=== PATIENT | female | born 1965 | race Caucasian/White ===

== ENCOUNTER 2021-02-02 02:42 | Outpatient (CLI) | payer OTHER, SELFPAY ==
[2021-02-02 11:17] LABS: Source Nasal/Nares
[2021-02-02 17:21] LABS: COVID-19 PCR Negative (Negative)
== END 2021-02-02 02:43 | disposition home or self-care (01) ==
LOC: LBO 02:42
PROVIDERS: PCP Family Medicine; Visit Provider Ophthalmology
DX: Z20.822 Contact with and (suspected) exposure to COVID-19 (principal); Z01.818 Encounter for other preprocedural examination
CPT/HCPCS: 87635

== ENCOUNTER 2021-02-04 06:23 | Day surgery (SDC) | payer OTHER, SELFPAY ==
--- NOTE | 2021-02-04 06:14 | W.PREOPHP ---
Date of service: 02/04/21 Assessment and Plan Assessment and plan (1) Cortical cataract of right eye: Status: Chronic Assessment and plan: Assessment: Visually significant cataract of the right eye. Plan: Cataract extraction with lens implantation of the right eye (2) Nuclear sclerotic cataract of right eye: Status: Chronic Assessment and plan: Assessment: Visually significant cataract of the right eye. Plan: Cataract extraction with lens implantation of the right eye History of Present Illness History of Present Illness Chief Complaint: Progressive decreased vision, both eyes, right eye worse than left Narrative: The patient is a 54-year-old lady who has noted rapid decline in vision in both eyes over the past several months, right eye worse than left. She notes significant difficulty with vision at both distance and near. She is significantly photophobic and wears sunglasses outside due to glare. She can no longer drive at night. Review of Systems All systems reviewed & are unremarkable except as noted in HPI and below PFSH Medical History (Updated 02/04/21 @ 06:18 by Rasheed Castano MD) Bilateral plantar fasciitis Cataract Diabetes mellitus Diabetic neuropathy Edema of foot Elbow fracture Heartburn HLD (hyperlipidemia) Iron deficiency anemia Lesion of endometrium Medial epicondylitis Osteoporosis Pain in right foot Polyp of colon Psoriasis Rotator cuff syndrome Sciatica Snoring Tarsal tunnel syndrome, bilateral Tendinitis of foot Surgical History (Updated 02/04/21 @ 06:18 by Rasheed Castano MD) History of esophagogastroduodenoscopy (EGD) Hx of section Hx of cholecystectomy Hx of colonoscopy Hx of shoulder surgery Hx of sinus surgery Hx of tubal ligation Social History Smoking/Tobacco Use Status: Never Smoking risk assessment performed?: Yes Alcohol Intake: never Drug use: Never Substance use type: does not use Do you feel safe at home: Yes Do you feel safe in your relationship?: Yes Meds Allergies and Home Medications Allergies Allergy/AdvReac Type Severity Reaction Status Date / Time meloxicam AdvReac Severe Nausea Unverified 02/03/21 12:25 gabapentin AdvReac Intermediate Other (See Unverified 02/03/21 12:25 Comment) Home Medications Medication Instructions Recorded Confirmed Type alendronate 70 mg PO DIRECTED 02/03/21 02/03/21 History alpha lipoic acid 300 mg PO BID 02/03/21 02/03/21 History atorvastatin 20 mg PO DAILY 02/03/21 02/03/21 History calcium carb-mag oxide-vit D3 1 tab PO DAILY 02/03/21 02/03/21 History [Calcium Magnesium + D] cholecalciferol (vitamin D3) 25 mcg PO DAILY 02/03/21 02/03/21 History [Vitamin D3] cyanocobalamin (vitamin B-12) 25 mcg PO DAILY 02/03/21 02/03/21 History [Vitamin B-12] diclofenac sodium 1 applic TOPICAL QID 02/03/21 02/03/21 History duloxetine 20 mg PO QAM 02/03/21 02/03/21 History duloxetine 40 mg PO HS 02/03/21 02/03/21 History folic acid 1 mg PO DAILY 02/03/21 02/03/21 History lisinopril 2.5 mg PO DAILY 02/03/21 02/03/21 History magnesium chloride [Slow-Mag] 71.5 mg PO DAILY 02/03/21 02/03/21 History metformin 1,000 mg PO BID 02/03/21 02/03/21 History omeprazole 20 mg PO DAILY 02/03/21 02/03/21 History sitagliptin [Januvia] 100 mg PO HS 02/03/21 02/03/21 History triamcinolone acetonide 1 applic TOPICAL BID 02/03/21 02/03/21 History zinc sulfate-vitamin C [Vitamin C 1 tab PO DAILY 02/03/21 02/03/21 History Plus Zinc] Exam Eyes Conjunctivae: conjunctivae normal Sclera: sclerae normal Cornea: corneas normal Pupils: PERRL EOM: EOM intact bilaterally Other: Corrected visual acuity is 20/50 in the right eye, 20/40 in the left eye. Intraocular pressure is 19 right eye, 20 left eye. Slit-lamp examination reveals mild cortical cataracts OU with dense nuclear cataracts. Funduscopic examination shows disc cupping of 0.1 OU with normal vessels, macula, peripheral retina and vitreous. Resp Effort & Inspection: normal respiratory effort Auscultation: clear to auscultation bilaterally Cardio Rate: regular rate Rhythm: regular rhythm
[2021-02-04 06:55] VITALS: BP 141/79; PULSE 88; RESP 16; TEMP 36.6; O2SAT 100
--- NOTE | 2021-02-04 06:56 | ANES.PREOP_ITS ---
General Info Date of Service Date Performed: 02/04/21 Height: 5 ft 1 in Weight: 58.06 kg Body Mass Index (BMI): 24.1 Surgical Procedure: Operation Date: 02/04/21 07:40 Proposed Procedures Side Surgeon p Cataract Extraction with IOL Implant Right Rasheed Castano MD Meds Allergies and Home Medications Allergies Allergy/AdvReac Type Severity Reaction Status Date / Time meloxicam AdvReac Severe Nausea Unverified 02/04/21 06:48 gabapentin AdvReac Intermediate Other (See Unverified 02/04/21 06:48 Comment) Home Medication Medication Instructions Recorded alendronate 70 mg PO DIRECTED 02/03/21 alpha lipoic acid 300 mg PO BID 02/03/21 atorvastatin 20 mg PO DAILY 02/03/21 calcium carb-mag oxide-vit D3 1 tab PO DAILY 02/03/21 [Calcium Magnesium + D] cholecalciferol (vitamin D3) 25 mcg PO DAILY 02/03/21 [Vitamin D3] cyanocobalamin (vitamin B-12) 25 mcg PO DAILY 02/03/21 [Vitamin B-12] diclofenac sodium 1 applic TOPICAL QID 02/03/21 duloxetine 20 mg PO QAM 02/03/21 duloxetine 40 mg PO HS 02/03/21 folic acid 1 mg PO DAILY 02/03/21 lisinopril 2.5 mg PO DAILY 02/03/21 magnesium chloride [Slow-Mag] 71.5 mg PO DAILY 02/03/21 metformin 1,000 mg PO BID 02/03/21 omeprazole 20 mg PO DAILY 02/03/21 sitagliptin [Januvia] 100 mg PO HS 02/03/21 triamcinolone acetonide 1 applic TOPICAL BID 02/03/21 Current Visit Medications: Current Medications Generic Name Dose Route Start Last Admin Trade Name Freq PRN Reason Stop Dose Admin Acetaminophen 1,000 mg 02/04/21 06:00 Acetaminophen 500 Mg Tab PO Q4H PRN PRN Miscellaneous Medication 0 ml 02/04/21 06:00 Prednisolone 1%, Moxifloxacin 0.5%, Nepafenac 0.1% 5ml Btl OD DIRECTED [facility] Miscellaneous Medication 0 ml 02/04/21 06:00 Tropicam./Phenyleph. (1/2.5%) 5 Ml Btl OD DIRECTED [facility] Tetracaine HCl 0 ml 02/04/21 06:00 Tetracaine 0.5% 4 Ml Btl OD DIRECTED [facility] PFS Active Problems Active Problems: Problem Status Onset Code Nuclear sclerotic cataract of left eye H25.12 Cortical cataract of left eye H26.9 Cortical cataract of right eye H26.9 Nuclear sclerotic cataract of right eye H25.11 Medical History Medical History Bilateral plantar fasciitis Cataract Diabetes mellitus Diabetic neuropathy Edema of foot Elbow fracture Heartburn HLD (hyperlipidemia) Iron deficiency anemia Lesion of endometrium Medial epicondylitis Osteoporosis Pain in right foot Polyp of colon Psoriasis Rotator cuff syndrome Sciatica Snoring Tarsal tunnel syndrome, bilateral Tendinitis of foot Surgical History Surgical History History of esophagogastroduodenoscopy (EGD) Hx of section Hx of cholecystectomy Hx of colonoscopy Hx of shoulder surgery Hx of sinus surgery Hx of tubal ligation Tobacco Smoking/Tobacco Use Status: Never Alcohol Alcohol Intake: never Substance Use Substance use: Never Substance use type: does not use Vital Signs and Lab Results Point of Care Results Point of Care Results: Finger Stick Blood Glucose 136 02/04/21 06:48 Lab Results Blood Type / Crossmatch: No Data to Display Complete Blood Count: No Data to Display Complete Metabolic Panel: No Data to Display Liver Function Panel: No Data to Display Coagulation Panel: No Data to Display Cardiac Panel: No Data to Display Arterial Blood Gas: No Data to Display Venous Blood Gas: No Data to Display Pancreas Panel: No Data to Display Thyroid Panel: No Data to Display Infectious Disease: Coronavirus (COVID-19)(PCR) Negative (Negative) 02/02/21 11:03 02/02/21 Coronavirus 2019 Source Nasal/Nares 02/02/21 11:03 02/02/21 Blood Cultures: No Data to Display Toxicology Panel: No Data to Display Anesthesia Assessment and Plan Anesthesia History Personal History: No History of Anesthesia Complications Family History: No Family History of Anesthesia Complications Exercise Tolerance Exercise Tolerance: Metabolic Equivalents>4 Pertinent Negatives Pertinent Negatives: No Symptoms of GERD, No Major Cardiovascular Symptoms or Complaints, No Major Pulmonary Symptoms or Complaints and No History of CVA/TIA Cardiac & Pulmonary Exam Cardiac Exam: Normal S1/S2 Heart Sounds Pulmonary Exam: Clear Bilateral Breath Sounds Implantable Cardiac Device Does patient have a Pacemaker or an ICD?: No Airway Exam Known Difficult Airway: No Mallampati Class: 2 Mouth Opening: Normal (> 3cm) Thyromental Distance: Greater than 3 cm Neck Range of Motion: Full ROM Neck Circumference: Normal Teeth Condition: Normal Dentition ASA Classification ASA Score: ASA 2 Emergency Case?: No NPO Status NPO Status: NPO Clears >2 hours, Solids >8 hours Anesthesia Plan Resuscitation Status: Full Code Anesthesia Technique: MAC Anesthesia Airway Planned: Natural Airway Monitors Used: Standard Monitors
[2021-02-04] MEDS: Tropicam./Phenyleph. (1/2.5%) 5 ML BTL OD ×3 (07:01→07:12)
[2021-02-04 07:30] VITALS: BMI 24.1
[2021-02-04] MEDS: Lidocaine 1% Pres-Free 5 ML VIAL (07:33)
[2021-02-04] MEDS: Povidone-Iodine Ophth 30 ML BTL (07:35)
[2021-02-04] MEDS: Balanced Salt Soln.-PLUS 500 ML BAG (07:35)
[2021-02-04] MEDS: Lidocaine 2% Jelly 6 ML SYR (07:35)
[2021-02-04] MEDS: Tetracaine 0.5% 4 ML BTL OD (07:36)
[2021-02-04] MEDS: Duovisc Viscoelastic System EACH 1 EACH (07:36)
[2021-02-04 07:55] VITALS: BP 150/78; PULSE 81; RESP 16; TEMP 36.7; O2SAT 100
--- NOTE | 2021-02-04 08:13 | W.ANESPOSTOP ---
Postoperative Evaluation Date, Time and Location Date Performed: 02/04/21 Time Performed: 08:05 Patient Location: Day Surgery Unit Vital Signs Most Recent Imported Vital Signs: Most Recent Vital Signs Temp Pulse Resp BP Pulse Ox 36.7 C 81 16 150/78 H 100 02/04/21 07:55 02/04/21 07:55 02/04/21 07:55 02/04/21 07:55 02/04/21 07:55 Pain Score Most Recent Pain Score: Most Recent Pain Score Pain Level 0 02/04/21 07:55 Assessment Mental Status: Awake (Alert & Oriented to Patient Baseline) Airway and Respiratory Function: Patent airway with normal (patient baseline) respiratory exam Cardiovascular Function: Hemodynamically Stable Hydration Status: Adequately Hydrated Nausea & Vomiting: No Nausea or Vomiting Pain: Pt. Denies Any Pain Peripheral Nerve Block: Other (Local by Dr. Castano)
--- NOTE | 2021-02-04 08:47 | ROE_ITS ---
Date of service: 02/04/21 Time of Service: 08:48 Operative Note Operative Note DATE OF PROCEDURE: 02/04/21 PRE-OP DIAGNOSIS: Nuclear/cortical cataract, right eye POST-OP DIAGNOSIS: same PROCEDURE: Cataract extraction using phacoemulsification with intraocular lens implant, right eye SURGEON: Rasheed Castano ANESTHESIA TYPE: Local By Surgeon and MAC Refer to Anesthesia Record ESTIMATED BLOOD LOSS: 0 PATHOLOGY: none sent COMPLICATIONS: None Patient was transported to: same day Patient's condition: stable Implants: [employer]/KATERIN Tecnis [id number] Indications: Progressive visual loss due to cataract, right eye Procedure Description: CATARACT SURGERY OPERATIVE REPORT PREOPERATIVE DIAGNOSIS: 1. Nuclear/cortical cataract, right eye POSTOPERATIVE DIAGNOSIS: Same OPERATION: 1. Cataract extraction using phacoemulsification with posterior chamber intraocular lens implant, right eye. IOL: IOL Rn International/Model: [employer] Dick / KATERIN Tecnis [id number] IOL Power: + 24.0 diopters IOL Serial Number: [id number] Optic Diameter: 6.0mm Haptic/Overall Diameter: 13.0mm PHACO INFO: [place] 248 SolidStateurion Vision System with OZil and Active Fluidics Cumulative Dispersed Energy (CDE): 7.69 seconds SURGEON: Rasheed Castano MD, BROOKS ANESTHESIA: Monitored Anesthesia Care (MAC), with local sub-tenon's anesthetic infiltration COMPLICATIONS: None SPECIMENS: None INDICATIONS FOR PROCEDURE: The patient is a 55-year-old lady with history of diminished visual acuity in her right eyes secondary to the development of nuclear and cortical cataract. She is significantly symptomatic that she desires cataract surgery and attempt to improve and maximize her vision. PROCEDURE: The correct surgical eye was identified and marked as the right eye and the pupil was dilated in the preoperative area using mydriatics and cycloplegics. The dilated pupil size was 7.0 mm. She elected to proceed without oral sedation. The patient was brought to the operating room where cardiopulmonary monitoring was instituted and surgical time-out was performed, confirming the correct operative eye and IOL power. Topical anesthesia was administered and ophthalmic povidone-iodine 5% was instilled into the conjunctival fornices. Lidocaine gel was applied to the cornea and the angela-ocular area was prepped with Betadine 10% solution and draped in the usual sterile fashion for intraocular surgery, including an aperture drape. A Tegaderm transparent film dressing was cut in half and used to cover the lashes and lid margins. Care was taken to sequester the lashes and lid margins under the Tegaderm dressing. A lid speculum was placed between the lids of the operative eye and the Kylie-Sander operating microscope was maneuvered into position. Cruzito scissors were then used to make a conjunctival buttonhole approximately 6mm posterior to the limbus in the inferonasal quadrant. Blunt dissection was carried out to expose bare sclera, and a blunt-tipped sub-tenon?s anesthesia cannula was introduced and passed posteriorly along the globe where non- preserved plain lidocaine was injected into posterior sub-Tenon?s space. A sideport knife was used to make a paracentesis port inferotemporally. Intraocular phenylephrine/lidocaine was injected into the anterior chamber. The anterior chamber was filled with viscoelastic. A 2.4mm keratome knife was used to create a half-thickness groove at the limbus and then to construct a three-plane near-clear corneal tunnel extending 2.0mm into clear cornea superiortemporally. A flap was raised on the anterior capsule and capsulorhexis forceps were used to complete a continuous curvilinear capsulorhexis of 5.5 mm. Balanced salt solution was then used to perform cortical cleaving hydrodissection and nuclear hydrodelineation until the lens could be freely rotated within the capsular bag. The lens nucleus was then disassembled and removed within the capsular bag and iris plane using phacoemulsification. Residual cortical material was removed using the I/A handpiece. The posterior capsule was carefully polished to remove as much residual lens epithelial cells as safely possible. There was a small area of residual posterior subcapsular plaque which could not be safely removed just superior to central. the capsular bag was then inflated and the anterior chamber deepened with viscoelastic. The lens implant described above was inserted into the capsular bag using the KATERIN [place] Injector. A Kuglen hook was used to dial the IOL into position. Residual viscoelastic was then removed first from posterior to the IOL, then from the anterior chamber using the I/A handpiece. The lens implant was noted to center nicely within the capsular bag. The incisions were stromally hydrated, and the anterior chamber was reformed using BSS. Then 0.5cc of moxifloxacin 1.0mg/ml were injected into the capsular bag and anterior chamber. The incisions were checked with a Weck spear and found to be secure. Several drops of ophthalmic povidone-iodine 5% were then applied to the eye followed by two drops of Imprimis combination prednisolone/moxifloxacin/nepafenac solution. The drapes were removed and a clear plastic protective eye shield was placed over the eye. The patient was then returned to Same Day Surgery in stable condition.
--- NOTE | 2021-02-04 08:50 | W.PM.DSUDISC ---
Discharge Plan Disposition Patient Disposition: HOME Condition: Good Discharge Details Attending Provider: Rasheed Castano Primary Care Provider: Maria Elena Reyes Home Meds and New Rx's Prescriptions: No Action atorvastatin 20 mg tablet 20 mg PO DAILY RF: 0 alendronate 70 mg tablet 70 mg PO DIRECTED RF: 0 triamcinolone acetonide 0.1 % cream 1 applic TOPICAL BID RF: 0 folic acid 1 mg Tablet 1 mg PO DAILY RF: 0 metformin 500 mg tablet extended release 24 hr 1,000 mg PO BID RF: 0 lisinopril 2.5 mg tablet 2.5 mg PO DAILY RF: 0 Vitamin B-12 25 mcg Tablet 25 mcg PO DAILY RF: 0 cholecalciferol (vitamin D3) [Vitamin D3] 25 mcg (1,000 unit) Capsule 25 mcg PO DAILY RF: 0 duloxetine 20 mg capsule,delayed release(DR/EC) 20 mg PO QAM RF: 0 Januvia 100 mg tablet 100 mg PO HS RF: 0 Calcium Magnesium + D 400-167-133 mg-mg-unit Tablet 1 tab PO DAILY RF: 0 diclofenac sodium 1 % gel 1 applic topical QID RF: 0 omeprazole 20 mg Tablet,Delayed Release (Dr/Ec) 20 mg PO DAILY RF: 0 alpha lipoic acid 300 mg Capsule 300 mg PO BID RF: 0 Slow-Mag 71.5 mg Tablet,Delayed Release (Dr/Ec) 71.5 mg PO DAILY RF: 0 duloxetine 40 mg capsule,delayed release(DR/EC) 40 mg PO HS RF: 0 Discharge Instructions Stand Alone Forms: Post-op Topical Cataract, Mary Ellen Temple ([facility]) Discharge Orders Discharge Orders: Discharge Order (Routine); Ordered 02/04/21 Ordered By: Rasheed Castano Discharge Data Discharge Date/Time-TO BE ENTERED AT DEPARTURE: 02/04/21 08:22 DS: Diagnosis Discharge Diagnosis (1) Cortical cataract of right eye: Status: Resolved (2) Nuclear sclerotic cataract of right eye: Status: Resolved
== END 2021-02-04 08:22 | disposition home or self-care (01) ==
LOC: SUR 06:25
PROVIDERS: PCP Internal Medicine; Visit Provider Ophthalmology
PROC: (CPT 66984; principal; 2021-02-04 07:30)
DX: H25.11 Age-related nuclear cataract, right eye (principal); E11.40 Type 2 diabetes mellitus with diabetic neuropathy, unspecified; D50.9 Iron deficiency anemia, unspecified
CPT/HCPCS: 66984; V2632

== ENCOUNTER 2021-02-08 08:46 | Outpatient (CLI) | payer OTHER, SELFPAY ==
[2021-02-08 11:02] LABS: Source Nasal/Nares
[2021-02-08 17:36] LABS: COVID-19 PCR Negative (Negative)
== END 2021-02-08 08:47 | disposition home or self-care (01) ==
LOC: LBO 08:47
PROVIDERS: PCP Internal Medicine; Visit Provider Ophthalmology
DX: Z20.822 Contact with and (suspected) exposure to COVID-19 (principal); Z01.818 Encounter for other preprocedural examination
CPT/HCPCS: 87635

== ENCOUNTER 2021-02-11 06:19 | Day surgery (SDC) | payer OTHER, SELFPAY ==
--- NOTE | 2021-02-10 13:03 | ANES.PREOP_ITS ---
General Info Date of Service Date Performed: 02/11/21 Height: 5 ft 1 in Weight: 26.336 kg Body Mass Index (BMI): 11.0 Surgical Procedure: Operation Date: 02/11/21 07:40 Proposed Procedures Side Surgeon p Cataract Extraction with IOL Implant Left Rasheed Castano MD Meds Allergies and Home Medications Allergies Allergy/AdvReac Type Severity Reaction Status Date / Time meloxicam AdvReac Severe Nausea Verified 02/11/21 06:40 gabapentin AdvReac Intermediate Other (See Verified 02/11/21 06:40 Comment) Home Medication Medication Instructions Recorded alendronate 70 mg PO DIRECTED 02/03/21 alpha lipoic acid 300 mg PO BID 02/03/21 atorvastatin 20 mg PO DAILY 02/03/21 calcium carb-mag oxide-vit D3 1 tab PO DAILY 02/03/21 [Calcium Magnesium + D] cholecalciferol (vitamin D3) 25 mcg PO DAILY 02/03/21 [Vitamin D3] cyanocobalamin (vitamin B-12) 25 mcg PO DAILY 02/03/21 [Vitamin B-12] diclofenac sodium 1 applic TOPICAL QID 02/03/21 duloxetine 20 mg PO QAM 02/03/21 duloxetine 40 mg PO HS 02/03/21 lisinopril 2.5 mg PO DAILY 02/03/21 magnesium chloride [Slow-Mag] 71.5 mg PO DAILY 02/03/21 metformin 1,000 mg PO BID 02/03/21 omeprazole 20 mg PO DAILY 02/03/21 sitagliptin [Januvia] 100 mg PO HS 02/03/21 triamcinolone acetonide 1 applic TOPICAL BID 02/03/21 Current Visit Medications: Current Medications Generic Name Dose Route Start Last Admin Trade Name Freq PRN Reason Stop Dose Admin Acetaminophen 1,000 mg 02/11/21 06:00 Acetaminophen 500 Mg Tab PO Q4H PRN PRN Miscellaneous Medication 0 ml 02/11/21 06:00 Prednisolone 1%, Moxifloxacin 0.5%, Nepafenac 0.1% 5ml Btl OS DIRECTED [facility] Miscellaneous Medication 0 ml 02/11/21 06:00 Tropicam./Phenyleph. (1/2.5%) 5 Ml Btl OS DIRECTED [facility] Tetracaine HCl 0 ml 02/11/21 06:00 Tetracaine 0.5% 4 Ml Btl OS DIRECTED [facility] Active Problems Active Problems: Problem Status Onset Code Nuclear sclerotic cataract of left eye H25.12 Cortical cataract of left eye H26.9 Cortical cataract of right eye H26.9 Nuclear sclerotic cataract of right eye H25.11 Medical History Active Problem List Nuclear sclerotic cataract of left eye (Acute) Cortical cataract of left eye (Acute) Medical History Bilateral plantar fasciitis Cataract Diabetes mellitus Diabetic neuropathy Edema of foot Elbow fracture Heartburn HLD (hyperlipidemia) Iron deficiency anemia Lesion of endometrium Medial epicondylitis Osteoporosis Pain in right foot Polyp of colon Psoriasis Rotator cuff syndrome Sciatica Snoring Tarsal tunnel syndrome, bilateral Tendinitis of foot Surgical History Surgical History History of esophagogastroduodenoscopy (EGD) Hx of section Hx of cholecystectomy Hx of colonoscopy Hx of shoulder surgery Hx of sinus surgery Hx of tubal ligation Tobacco Smoking/Tobacco Use Status: Never Alcohol Alcohol Intake: never Substance Use Substance use: Never Substance use type: does not use Vital Signs and Lab Results Vital Signs Most Recent Vital Signs in EMR: Temp Pulse Resp BP Pulse Ox 36.6 C 98 H 16 122/69 98 02/11/21 06:45 02/11/21 06:45 02/11/21 06:45 02/11/21 06:45 02/11/21 06:45 Lab Results Blood Type / Crossmatch: No Data to Display Complete Blood Count: No Data to Display Complete Metabolic Panel: No Data to Display Liver Function Panel: No Data to Display Coagulation Panel: No Data to Display Cardiac Panel: No Data to Display Arterial Blood Gas: No Data to Display Venous Blood Gas: No Data to Display Pancreas Panel: No Data to Display Thyroid Panel: No Data to Display Infectious Disease: Coronavirus (COVID-19)(PCR) Negative (Negative) 02/08/21 09:39 02/08/21 Coronavirus 2019 Source Nasal/Nares 02/08/21 09:39 02/08/21 Blood Cultures: No Data to Display Toxicology Panel: No Data to Display Anesthesia Assessment and Plan Anesthesia History Personal History: No History of Anesthesia Complications Family History: No Family History of Anesthesia Complications Exercise Tolerance Exercise Tolerance: Metabolic Equivalents>4 Cardiac & Pulmonary Exam Cardiac Exam: Normal S1/S2 Heart Sounds Pulmonary Exam: Clear Bilateral Breath Sounds Implantable Cardiac Device Does patient have a Pacemaker or an ICD?: No Airway Exam Known Difficult Airway: No Mallampati Class: 2 Mouth Opening: Normal (> 3cm) Thyromental Distance: Greater than 3 cm Neck Range of Motion: Full ROM Neck Circumference: Normal Teeth Condition: Normal Dentition ASA Classification ASA Score: ASA 2 Emergency Case?: No NPO Status NPO Status: NPO Clears >2 hours, Solids >8 hours Anesthesia Plan Resuscitation Status: Full Code Anesthesia Technique: MAC Anesthesia Airway Planned: Natural Airway Monitors Used: Standard Monitors Preoperative Comments:: 55 yo female for cataract removal. Sig PMHx: DM, neuropathy. no MKO last time, pre victorina could benefit from one. Chatted with her, she was very happy with last time and does not want an MKO.
--- NOTE | 2021-02-11 06:23 | HPE_ITS ---
Date of service: 02/11/21 Time of Service: 06:24 Assessment and Plan Assessment and plan (1) Nuclear sclerotic cataract of left eye: Status: Acute Assessment and plan: Assessment: Visually significant cataract of the left eye. Plan: Cataract extraction with lens implantation, left eye (2) Cortical cataract of left eye: Status: Acute Assessment and plan: Assessment: Visually significant cataract of the left eye. Plan: Cataract extraction with lens implantation, left eye History of Present Illness History of Present Illness Chief Complaint: Decreased vision left eye Narrative: The patient is a 54-year-old lady with history of progressive decreased vision in both eyes, particularly in the distance. On examination she was noted to have moderate bilateral nuclear and cortical cataract. She has already undergone cataract surgery in the right eye on 02/04/2021. Postoperatively she has regained uncorrected vision of 20/25 in the right eye. She now presents for cataract surgery in the left eye. Review of Systems All systems reviewed & are unremarkable except as noted in HPI and below PFSH Active Problem List Nuclear sclerotic cataract of left eye (Acute) Cortical cataract of left eye (Acute) Medical History Bilateral plantar fasciitis Cataract Diabetes mellitus Diabetic neuropathy Edema of foot Elbow fracture Heartburn HLD (hyperlipidemia) Iron deficiency anemia Lesion of endometrium Medial epicondylitis Osteoporosis Pain in right foot Polyp of colon Psoriasis Rotator cuff syndrome Sciatica Snoring Tarsal tunnel syndrome, bilateral Tendinitis of foot Surgical History History of esophagogastroduodenoscopy (EGD) Hx of section Hx of cholecystectomy Hx of colonoscopy Hx of shoulder surgery Hx of sinus surgery Hx of tubal ligation Social History Smoking/Tobacco Use Status: Never Smoking risk assessment performed?: Yes Alcohol Intake: never Drug use: Never Substance use type: does not use Do you feel safe at home: Yes Do you feel safe in your relationship?: Yes Meds Allergies and Home Medications Allergies Allergy/AdvReac Type Severity Reaction Status Date / Time meloxicam AdvReac Severe Nausea Verified 02/11/21 06:40 gabapentin AdvReac Intermediate Other (See Verified 02/11/21 06:40 Comment) Home Medications Medication Instructions Recorded Confirmed Type alendronate 70 mg PO DIRECTED 02/03/21 02/09/21 History alpha lipoic acid 300 mg PO BID 02/03/21 02/09/21 History atorvastatin 20 mg PO DAILY 02/03/21 02/09/21 History calcium carb-mag oxide-vit D3 1 tab PO DAILY 02/03/21 02/09/21 History [Calcium Magnesium + D] cholecalciferol (vitamin D3) 25 mcg PO DAILY 02/03/21 02/09/21 History [Vitamin D3] cyanocobalamin (vitamin B-12) 25 mcg PO DAILY 02/03/21 02/09/21 History [Vitamin B-12] diclofenac sodium 1 applic TOPICAL QID 02/03/21 02/09/21 History duloxetine 20 mg PO QAM 02/03/21 02/09/21 History duloxetine 40 mg PO HS 02/03/21 02/09/21 History folic acid 1 mg PO DAILY 02/03/21 02/09/21 History lisinopril 2.5 mg PO DAILY 02/03/21 02/09/21 History magnesium chloride [Slow-Mag] 71.5 mg PO DAILY 02/03/21 02/09/21 History metformin 1,000 mg PO BID 02/03/21 02/09/21 History omeprazole 20 mg PO DAILY 02/03/21 02/09/21 History sitagliptin [Januvia] 100 mg PO HS 02/03/21 02/09/21 History triamcinolone acetonide 1 applic TOPICAL BID 02/03/21 02/09/21 History Exam Eyes General: appearance normal, both eyes and all related structures Other: Uncorrected visual acuity measures 20/25 in the right eye. Corrected vision in the left eye is 20/40. Intraocular pressure is 19 right eye, 20 left eye. Extraocular motility is normal. Slit-lamp examination reveals a well- positioned PCIOL OD clear posterior capsule. A significant nuclear and cortical cataract is present in the left eye. Funduscopic examination reveals disc cupping of 0.1 OU with normal vessels, macula, peripheral retina and vitreous. Resp Auscultation: clear to auscultation bilaterally Cardio Rate: regular rate Rhythm: regular rhythm
[2021-02-11 06:45] VITALS: BP 122/69; PULSE 98; RESP 16; TEMP 36.6; O2SAT 98
[2021-02-11] MEDS: Tropicam./Phenyleph. (1/2.5%) 5 ML BTL OS ×3 (06:58→07:09)
[2021-02-11 07:13] VITALS: BMI 11.0
[2021-02-11] MEDS: Tetracaine 0.5% 4 ML BTL OS (07:21)
[2021-02-11] MEDS: Povidone-Iodine Ophth 30 ML BTL (07:27)
[2021-02-11] MEDS: Lidocaine 2% Jelly 6 ML SYR (07:28)
[2021-02-11] MEDS: Duovisc Viscoelastic System EACH 1 EACH (07:32)
[2021-02-11] MEDS: Balanced Salt Soln.-PLUS 500 ML BAG (07:34)
--- NOTE | 2021-02-11 07:48 | W.PM.OP ---
Date of service: 02/11/21 Time of Service: 07:49 Operative Note Operative Note DATE OF PROCEDURE: 02/11/21 PRE-OP DIAGNOSIS: Nuclear/cortical cataract, left eye POST-OP DIAGNOSIS: same PROCEDURE: Cataract extraction using phacoemulsification with intraocular lens implant, left eye SURGEON: Rasheed Castano ANESTHESIA TYPE: Local By Surgeon and MAC Refer to Anesthesia Record PATHOLOGY: none sent COMPLICATIONS: None Patient was transported to: same day Patient's condition: stable Implants: [employer] / [employer] Tecnis [id number] Indications: Progressive decreased vision due to cataract, left eye Procedure Description: CATARACT SURGERY OPERATIVE REPORT PREOPERATIVE DIAGNOSIS: 1. Nuclear/cortical cataract, left eye POSTOPERATIVE DIAGNOSIS: Same OPERATION: 1. Cataract extraction using phacoemulsification with posterior chamber intraocular lens implant, left eye. IOL: IOL [place] [employer]/Model: [employer] / KATERIN Tecnis [id number] IOL Power: + 24.5 diopters IOL Serial Number: [id number] Optic Diameter: 6.0 mm Haptic/Overall Diameter: 13.0 mm PHACO INFO: [place] [employer] Vision System with OZil and Active Fluidics Cumulative Dispersed Energy (CDE): 5.83 seconds SURGEON: Rasheed Castano MD, BR[facility]KS ANESTHESIA: Monitored [facility] (MAC), with local sub-tenon's anesthetic infiltration COMPLICATIONS: None SPECIMENS: None INDICATIONS FOR PROCEDURE: The patient is a 55-year-old lady with history of diminished visual acuity in both eyes secondary to the development of bilateral nuclear and cortical cataract. She has already undergone cataract surgery in the right eye and is doing well postoperatively. She now presents for cataract surgery in the left eye. PROCEDURE: The correct surgical eye was identified and marked as the left eye and the pupil was dilated in the preoperative area using mydriatics and cycloplegics. The dilated pupil size was 7.0 mm. The patient was brought to the operating room where cardiopulmonary monitoring was instituted and surgical time-out was performed, confirming the correct operative eye and IOL power. Topical anesthesia was administered and ophthalmic povidone-iodine 5% was instilled into the conjunctival fornices. Lidocaine gel was applied to the cornea and the angela-ocular area was prepped with Betadine 10% solution and draped in the usual sterile fashion for intraocular surgery, including an aperture drape. A Tegaderm transparent film dressing was cut in half and used to cover the lashes and lid margins. Care was taken to sequester the lashes and lid margins under the Tegaderm dressing. A lid speculum was placed between the lids of the operative eye and the Kylie-Sander operating microscope was maneuvered into position. Cruzito scissors were then used to make a conjunctival buttonhole approximately 6mm posterior to the limbus in the inferonasal quadrant. Blunt dissection was carried out to expose bare sclera, and a blunt-tipped sub-tenon?s anesthesia cannula was introduced and passed posteriorly along the globe where non-preserved plain lidocaine was injected into posterior sub-Tenon?s space. A sideport knife was used to make a paracentesis port superiorly/superiortemporally. Intraocular phenylephrine/lidocaine was injected int the anterior chamber.. The anterior chamber was filled with viscoelastic. A 2.4mm keratome knife was used to create a half-thickness groove at the limbus and then to construct a three-plane near-clear corneal tunnel extending 2.0mm into clear cornea at the 3:00 position. A flap was raised on the anterior capsule and capsulorhexis forceps were used to complete a continuous curvilinear capsulorhexis of 5.0 mm. Balanced salt solution was then used to perform cortical cleaving hydrodissection and nuclear hydrodelineation until the lens could be freely rotated within the capsular bag. The lens nucleus was then disassembled and removed within the capsular bag and iris plane using phacoemulsification. Residual cortical material was removed using the 45-degree angled silicone I/A tip with 0.3mm port. The posterior capsule was carefully polished to remove as much residual lens epithelial cells as safely possible. The capsular bag was then inflated and the anterior chamber deepened with viscoelastic. The lens implant described above was inserted into the capsular bag using the KATERIN [place] Injector. A Kuglen hook was used to dial the IOL into position. Residual viscoelastic was then removed first from posterior to the IOL, then from the anterior chamber using the I/A handpiece. The lens implant was noted to center nicely within the capsular bag. The incisions were stromally hydrated, and the anterior chamber was reformed using BSS. Then 0.5cc of moxifloxacin 1.0mg/ml were injected into the capsular bag and anterior chamber. The incisions were checked with a Weck spear and found to be secure. Several drops of ophthalmic povidone-iodine 5% were then applied to the eye followed by two drops of Imprimis combination prednisolone/moxifloxacin/nepafenac solution. The drapes were removed and a clear plastic protective eye shield was placed over the eye. The patient was then returned to [facility] Day Surgery in stable condition.
--- NOTE | 2021-02-11 07:49 | W.PM.DSUDISC ---
Discharge Plan Disposition Patient Disposition: HOME Condition: Good Discharge Details Attending Provider: Rasheed Castano Primary Care Provider: Maria Elena Reyes Home Meds and New Rx's Prescriptions: No Action atorvastatin 20 mg tablet 20 mg PO DAILY RF: 0 alendronate 70 mg tablet 70 mg PO DIRECTED RF: 0 triamcinolone acetonide 0.1 % cream 1 applic TOPICAL BID RF: 0 metformin 500 mg tablet extended release 24 hr 1,000 mg PO BID RF: 0 lisinopril 2.5 mg tablet 2.5 mg PO DAILY RF: 0 Vitamin B-12 25 mcg Tablet 25 mcg PO DAILY RF: 0 cholecalciferol (vitamin D3) [Vitamin D3] 25 mcg (1,000 unit) Capsule 25 mcg PO DAILY RF: 0 duloxetine 20 mg capsule,delayed release(DR/EC) 20 mg PO QAM RF: 0 Januvia 100 mg tablet 100 mg PO HS RF: 0 Calcium Magnesium + D 400-167-133 mg-mg-unit Tablet 1 tab PO DAILY RF: 0 diclofenac sodium 1 % gel 1 applic topical QID RF: 0 omeprazole 20 mg Tablet,Delayed Release (Dr/Ec) 20 mg PO DAILY RF: 0 alpha lipoic acid 300 mg Capsule 300 mg PO BID RF: 0 Slow-Mag 71.5 mg Tablet,Delayed Release (Dr/Ec) 71.5 mg PO DAILY RF: 0 duloxetine 40 mg capsule,delayed release(DR/EC) 40 mg PO HS RF: 0 Discharge Instructions Stand Alone Forms: Post-op Topical Cataract, Press Ganey (DSU) Discharge Orders Discharge Orders: Discharge Order (Routine); Ordered 02/11/21 Ordered By: Rasheed Castano DS: Diagnosis Discharge Diagnosis (1) Nuclear sclerotic cataract of left eye: Status: Resolved (2) Cortical cataract of left eye: Status: Resolved
[2021-02-11 07:58] VITALS: BP 125/73; PULSE 88; RESP 16; TEMP 36.2; O2SAT 100
--- NOTE | 2021-02-11 08:03 | W.ANESPOSTOP ---
Postoperative Evaluation Date, Time and Location Date Performed: 02/11/21 Time Performed: 07:55 Patient Location: Day Surgery Unit Vital Signs Most Recent Imported Vital Signs: Most Recent Vital Signs Temp Pulse Resp BP Pulse Ox 36.2 C L 88 16 125/73 100 02/11/21 07:58 02/11/21 07:58 02/11/21 07:58 02/11/21 07:58 02/11/21 07:58 Pain Score Most Recent Pain Score: Most Recent Pain Score Pain Level 0 02/11/21 07:58 Assessment Mental Status: Awake (Alert & Oriented to Patient Baseline) Airway and Respiratory Function: Patent airway with normal (patient baseline) respiratory exam Cardiovascular Function: Hemodynamically Stable Hydration Status: Adequately Hydrated Nausea & Vomiting: No Nausea or Vomiting Pain: Pt. Denies Any Pain Peripheral Nerve Block: Patient did not receive a nerve block
== END 2021-02-11 08:22 | disposition home or self-care (01) ==
PROVIDERS: PCP Internal Medicine; Visit Provider Ophthalmology
PROC: (CPT 66984; principal; 2021-02-11 07:30)
DX: H25.12 Age-related nuclear cataract, left eye (principal); E11.40 Type 2 diabetes mellitus with diabetic neuropathy, unspecified
CPT/HCPCS: 66984; V2632